=== PATIENT | male | born 1940 | race Caucasian/White ===

== ENCOUNTER → 2021-09-01 | Emergency (ER) | payer BC, MEDICARE ==
[~2021-09-01] VITALS: Ht 177.8 cm; Wt 90.0 kg
[~2021-09-01] MED LIST: proparacaine 0.5% ophthalmic drops 15ml RIGHTEYE ONE
[2021-09-01 11:52] VITALS: BP 129/61
== END | disposition left against medical advice (07) ==
LOC: ER 11:42
DX: T15.91XA Foreign body on external eye, part unspecified, right eye, initial encounter (principal); E78.00 Pure hypercholesterolemia, unspecified; I10 Essential (primary) hypertension; E11.9 Type 2 diabetes mellitus without complications; Z90.89 Acquired absence of other organs; Z98.890 Other specified postprocedural states; X58.XXXA Exposure to other specified factors, initial encounter; Y93.89 Activity, other specified; Y92.89 Other specified places as the place of occurrence of the external cause; Y99.8 Other external cause status
CPT/HCPCS: 99282